=== PATIENT | female | born 1995 | race Caucasian/White ===

== ENCOUNTER 2025-06-04 09:31 | Outpatient (REF) | payer OTHER, MEDICAID, SELFPAY ==
[2025-06-04 13:05] LABS: MANUAL DIFF FLAG NO
[2025-06-04 13:18] LABS: Hematocrit 42.7 % (37.0-47.0); Hemoglobin 13.8 g/dl (12.0-16.0); Imm Gran Abs Auto 0.02 X10*3/uL (0.00-0.03); Imm Gran Pct Auto 0.3 % (0.0-0.4); Lymphocytes Absolute Auto 1.7 X10*3/uL (1.2-4.9); Mean Corpuscular HGB Conc 32.3 g/dl (31.0-35.0); Mean Corpuscular Hemoglobin 28.7 pg (27.0-33.0); Mean Corpuscular Volume 88.8 fL (80.0-98.0); NRBC Abs Auto 0.000 X10*3/uL (0.0-0.012); NRBC Pct Auto 0.0 /100WBC (0.0-0.2); Platelet Count 299 X10*3/uL (160-400); Red Blood Count 4.81 X10*6/uL (4.20-5.50); White Blood Count 6.1 X10*3/uL (4.8-10.8)
[2025-06-06 10:48] LABS: Class Alternaria alternata 0; Class Aspergillus fumigatus 0; Class Bermuda Grass 0; Class Birch 0; Class Cat Dander 0; Class Cladosporium herbarum 0; Class Cockroach 0; Class Common Ragweed 0; Class Cottonwood 0; Class Derm. pterony 0; Class Dermatophagoides farinae 0; Class Dog Dander 0; Class Elm 0; Class Maple Box Elder 0; Class Mountain Cedar 0; Class Mouse Urine Protein 0; Class Mugwort 0; Class Oak 0; Class Penicillium crysogenum 0; Class Rough Pigweed 0; Class Sheep Sorrel 0; Class Sycamore 0; Class Timothy Grass 0; Class Walnut Tree 0; Class White Ash 0; Class White Mulberry 0; D002 - IgE D farinae <0.10 kU/L; E001 - IgE Cat Dander <0.10 kU/L; E005 - IgE Dog Dander <0.10 kU/L; G006 - IgE Timothy Grass <0.10 kU/L; I006-IgE Cockroach, German <0.10 kU/L; M002 - IgE Cladosporium herbar <0.10 kU/L; M003 - IgE Aspergillus fumigat <0.10 kU/L; M006 - IgE Alternaria alternat <0.10 kU/L; T001 IgE Maple/Box Elder <0.10 kU/L; T006 - IgE Cedar, Mountain <0.10 kU/L; T007 - IgE Oak, White <0.10 kU/L; T008 IgE Elm, American <0.10 kU/L; T010 - IgE Walnut <0.10 kU/L; T011 - IgE Maple Leaf Sycamore <0.10 kU/L; T014 - IgE Cottonwood <0.10 kU/L; T015 - IgE Ash, White <0.10 kU/L; T070 - IgE White Mulberry <0.10 kU/L; W001 - IgE Ragweed, Short <0.10 kU/L; W006 - IgE Mugwort <0.10 kU/L; W014 IgE Pigweed, Common <0.10 kU/L; W018 IgE Sheep Sorrel <0.10 kU/L
== END 2025-06-04 09:32 | disposition home or self-care (01) ==
LOC: HO.WFDLDS 09:31
PROVIDERS: PCP Internal Medicine; Referring Provider Internal Medicine; Visit Provider Nurse Practitioner Family
DX: J45.909 Unspecified asthma, uncomplicated (principal); Z01.84 Encounter for antibody response examination; Z91.09 Other allergy status, other than to drugs and biological substances
CPT/HCPCS: 36415; 82785; 85025; 86003

== ENCOUNTER 2025-06-04 09:31 | Outpatient (AMB) | payer OTHER, MEDICAID, SELFPAY ==
--- OUTSIDE RECORDS SUMMARY | 2025-03-11 09:00 | XMS_ITS ---
Author Organization [facility] Address [address] [place], [place] [id number] Care Team Providers Care Basin Operator Name Role Phone RADHA MEDEL Primary Care Provider [phone] ALLERGIES No Known Allergies REASON FOR REFERRAL Reason 03/11/[address] Blake pulmonary for shortness of breath question asthma question methacholine challenge test send copy of my note all the labs x-rays PFTs to the him Diagnosis 1 Shortness of breath (R06.02) Referral Organization [facility] Referring Provider First Name RADHA Referring Provider Last Name GIANFRANCO Referring Provider Speciality Internal M edicine Referred Provider CHAY BLAKE Referred Provider Specialty Pulmonary Chinyere hogue Referral Priority Urgent REASON FOR VISIT PG/1mo f/u respiratory ongoing issue MEDICATIONS Medication SIG (Take, Route, Fr equency, Duration) Notes Start Date End Date Status Culturelle - as directed Orally Active FLUoxetine HCl 20 MG 2 capsule orally once a day Active clonazePAM 0.25 MG 1 tablet Orally Once a day prn prn Active Mounjaro 5 MG/0.5ML as directed Subcutan eous once a week E66.01 10/15/2024 Active SOCIAL HISTORY Tobacco Use: Social History Observation Description Date Details (start date - stop date) Never Smoker NA - NA Sex Assigned At : Social History Observation Description Sex Assigned At Unknown Smoking Question Answer Notes Are you a: never smoker Section Notes: pt never smoke VITAL SIGNS Blood pressure systolic 106 mm Hg 03/11/20 25 Blood pressure diastolic 74 mm Hg 025 Height 63.75 in 03/11/2025 Weight 160 lbs 03/11/2025 BMI 27.68 kg/m2 03/11/2025 Encounters Encounter Location Date Provider Diagnosis [facility] [address] [place] [address] 03/11/2025 RADHA MEDEL Disorder of lipoprotein metabolism, unspecified E78.9 ; Anxiety disorder, unspecified F41.9 ; Elevated alkaline phosphatase level R74.8 ; Major depressive disorder, single episode, unspecified F32.9 ; Frequent headaches R51.9 ; Shortness of breath R06.02 and Weight loss R63.4 ASSESSMENTS Encounter Date Diagnosis Assessment Notes Treatment Notes Treatment Clinical Notes Section Notes 03/11/2025 Disorder of lipoprotein metabolism, unspecified (ICD-10 - E78.9) Lipids at goal total less than 200 LDL less than 100 follow-up in 12 months 03/11/2025 Anxiety disorder, unspecified (ICD-10 - F41.9) 03/11/2025 Elevated alkaline phosphatase level (ICD-10 - R74.8) Stable. Symptoms recheck alk phos. Recheck serum protein electrophoresis etc. check smooth muscle antibody 03/11/2025 Major depressive disorder, single episode, unspecified (ICD-10 - F32.9) Stable doing well continue SSRI 03/11/2025 Frequent headaches (ICD-10 - R51.9) Neurologically intact MRI of the brain negative check labs 03/11/2025 Shortness of breath (ICD-10 - R06.02) Physical exam stable. With symptoms we will get a consultation with Dr. Blake. Chest x-ray without any active disease. PFTs seem normal. May need a methacholine challenge test. Will also set up a cardiac echo 03/11/2025 Weight loss (ICD-10 - R63.4) Patient stable doing well continue with present dose of GLP-1. Has lost a significant amount of weight and is overall doing much better. No side effects noted 03/11/2025 Other PLAN OF TREATMENT Treatment Notes Assessment Notes Disorder of lipoprotein meta bolism, unspecified Lipids at goal total less than 200 LDL l ess than 100 follow-up in 12 months Elevated alkaline phosphatase level Stab le. Symptoms recheck alk phos. Recheck serum protein electrophoresis etc. check smooth muscle antibody Major depressive disorder, s tia episode, unspecified Stable doing well continue SSRI Frequent headaches Neurologically intac t MRI of the brain negative check labs Shortness of breath Physical exam stable . With symptoms we will get a consultation with Dr. Blake. Chest x-ray without any active disease. PFTs seem normal. May need a methacholine challenge test. Will also set up a cardiac echo Weight loss Patient stable doing well continue with present dose of GLP-1. Has lost a significant amount of weight and is overall doing much better. No side effects noted Referrals Referral Date Details 03/11/[address] Blake pulmonary for shortness of breath question asthma question methacholine challenge test send copy of my note [facility] Appt Details Follow Up: Follow-up 6 month s labs pending, Reason: Provider Name:RADHA PHILLIPS, 11/19/2025 10:30:00 AM, [address] [place] [address], [phone], Progress Notes * Examination Category Sub-Category Detail Notes Category Not es General Examination HEENT: Conjunctiva pink anicteric mucous membranes moist oropharynx clear TMs clear sinus clear EACs clear fundi negative Neck: Supple carotids 2+ n o bruits lymphadenopathy no thyromegaly Heart: RRR, no murmurs, cli cks or rubs Lungs: clear to auscultatio n Abdomen: soft, non tender/non distended, no rebound tenderness, no guarding or rigidity, no masses palpated, no hepatosplenomegaly, normal active bowel sounds Extremities: no clubbing , cyanos is, or edema, pulses 2 plus bilaterally General Appearance Pleasant well-develo ped well-nourished white female appearing stated age no apparent distress Skin: normal, no rash, arden ign appearing moles Neuro alert and oriented x 3, CN 2-12 intact, motor 5/5 bilaterally proximally and distally in all 4 extremities, no focal abnormality History and Physical Notes * HPI (History of Present Illness) Category Sub-Category Detail Notes Category Not es General Follow-up heada ches. See review of systems below Consultation Request Notes Referral Date Referring Provider Referred Provider Not es 03/11/2025 RADHA MEDEL MIGUEL [address] Blake pulmonary for shortness of breath question asthma question methacholine challenge test send copy of my note all the labs x-rays PFTs to the him
--- OUTSIDE RECORDS SUMMARY | 2025-03-11 09:35 | XMS_ITS ---
Author Organization [facility] Address [address] [place], [place] [id number] Care Team Providers Care Meat Team Member Name Role Phone RADHA MEDEL Primary Care Provider REASON FOR VISIT (PHONE) Encounters Encounter Location Date Provider Diagnosis [facility] [address] [place] [address] 03/11/2025 RADHA MEDEL PLAN OF TREATMENT Next Appt Details Provider Name:RADHA PHILLIPS, 11/19/2025 10:30:00 AM, [address] [place], [address],
--- OUTSIDE RECORDS SUMMARY | 2025-04-09 06:22 | XMS_ITS ---
Author Organization [facility] Address [address] [place], [place] [id number] Care Team Providers Care Plate Fitter Name Role Phone RADHA MEDEL Primary Care Provider REASON FOR VISIT fax chest x-ray PFT test Encounters Encounter Location Date Provider Diagnosis [address] [address] 04/09/2025 RADHA MEDEL PLAN OF TREATMENT Next Appt Details Provider Name:RADHA PHILLIPS, 11/19/2025 10:30:00 AM, [address] [place], [address],
--- OUTSIDE RECORDS SUMMARY | 2025-04-25 09:20 | XMS_ITS ---
Author Organization [facility] Address [address] [place], [place] [id number] Care Team Providers Care Chorus Master Name Role Phone RADHA MEDEL Primary Care Provider REASON FOR VISIT re fax cxr/PFT Encounters Encounter Location Date Provider Diagnosis [address] [address] 04/25/2025 RADHA MEDEL PLAN OF TREATMENT Next Appt Details Provider Name:RADHA PHILLIPS, 11/19/2025 10:30:00 AM, [address] [place], [address],
--- OUTSIDE RECORDS SUMMARY | 2025-05-01 06:30 | XMS_ITS ---
Author Organization [facility] Address [address] [place], [place] [id number] Care Team Providers Care Sole Splitter Name Role Phone GIANFRANCO RADHA Primary Care Provider [phone] ALLERGIES No Known Allergies REASON FOR VISIT 6mo F/U MEDICATIONS Medication SIG (Take, Route, Fr equency, Duration) Notes Start Date End Date Status Zepbound 5 MG/0.5ML 0.5 mL Subcutaneous for 30 day(s) Active clonazePAM 0.25 MG 1 tablet Orally Once a day prn prn Active Culturelle - as directed Orally Active FLUoxetine HCl 20 MG 2 capsule orally once a day Active SOCIAL HISTORY Tobacco Use: Social History Observation Description Date Details (start date - stop date) Never Smoker NA - NA Sex Assigned At : Social History Observation Description Sex Assigned At Unknown Smoking Question Answer Notes Are you a: never smoker Section Notes: pt never smoke VITAL SIGNS Blood pressure systolic 104 mm Hg 05/01/20 25 Blood pressure diastolic 70 mm Hg 025 Height 63.75 in 05/01/2025 Weight 152 lbs 05/01/2025 BMI 26.29 kg/m2 05/01/2025 Encounters Encounter Location Date Provider Diagnosis [facility] [address] [place] [address] 05/01/2025 RADHA MEDEL Disorder of lipoprotein metabolism, unspecified E78.9 ; Anxiety disorder, unspecified F41.9 ; Elevated alkaline phosphatase level R74.8 ; Major depressive disorder, single episode, unspecified F32.9 ; Unintended weight gain R63.5 and Frequent headaches R51.9 ASSESSMENTS Encounter Date Diagnosis Assessment Notes Treatment Notes Treatment Clinical Notes Section Notes 05/01/2025 Disorder of lipoprotein metabolism, unspecified (ICD-10 - E78.9) Total cholesterol 160 LDL under 100 therefore recheck in 1 year. 05/01/2025 Anxiety disorder, unspecified (ICD-10 - F41.9) Stable doing well on present dose of SSRI continue 05/01/2025 Elevated alkaline phosphatase level (ICD-10 - R74.8) Recheck alkaline phosphatase check serum immunofixation 05/01/2025 Major depressive disorder, single episode, unspecified (ICD-10 - F32.9) 05/01/2025 Unintended weight gain (ICD-10 - R63.5) Patient doing very well with no side effects from the medication and has lost a considerable amount of weight body mass index has now dropped down to 27 with a 50 pound weight loss. Told patient I would probably decrease the dosage when she gets down to around 140 05/01/2025 Frequent headaches (ICD-10 - R51.9) Stable doing well PLAN OF TREATMENT Treatment Notes Assessment Notes Disorder of lipoprotein meta bolism, unspecified Total cholesterol 160 LDL under 100 therefore recheck in 1 year. Anxiety disorder, unspecified Stable doi ng well on present dose of SSRI continue Elevated alkaline phosphatase level Rech adrian alkaline phosphatase check serum immunofixation Unintended weight gain Patient doing ryan y well with no side effects from the medication and has lost a considerable amount of weight body mass index has now dropped down to 27 with a 50 pound weight loss. Told patient I would probably decrease the dosage when she gets down to around 140 Frequent headaches Stable doing well Next Appt Details Follow Up: Patient due for p hysical exam in 1 year labs pending, Reason: Provider Name:RADHA PHILLIPS, 11/19/2025 10:30:00 AM, [address] [place], [address], Progress Notes * Examination Category Sub-Category Detail Notes Category Not es General Examination HEENT: Conjunctiva pink anicteric mucous membranes moist oropharynx clear times clear sinuses clear EACs clear fundi negative Neck: Supple carotids 2+ n o bruits no lymphadenopathy no thyromegaly Heart: RRR, no murmurs, cli cks or rubs Lungs: clear to auscultatio n Abdomen: soft, non tender/non distended, no rebound tenderness, no guarding or rigidity, no masses palpated, no hepatosplenomegaly, normal active bowel sounds Extremities: no clubbing , cyanos is, or edema, pulses 2 plus bilaterally General Appearance Pleasant well-develo ped well-nourished white female appears stated age no apparent distress Skin: normal, no rash, arden ign appearing moles History and Physical Notes * HPI (History of Present Illness) Category Sub-Category Detail Notes Category Not es General Follow-up regar ding weight loss progress. See review of systems below
--- OUTSIDE RECORDS SUMMARY | 2025-05-21 06:57 | XMS_ITS ---
Author Organization [facility] Address [address] [place], [place] [phone] Care Team Providers Care Supply Chain Manager Name Role Phone RADHA MEDEL Primary Care Provider REASON FOR VISIT 2 right arm pain Encounters Encounter Location Date Provider Diagnosis [facility] [address] [place] [address] 05/21/2025 RADHA MEDEL PLAN OF TREATMENT Next Appt Details Provider Name:RADHA PHILLIPS, 11/19/2025 10:30:00 AM, [address] [place], [address],
--- OUTSIDE RECORDS SUMMARY | 2025-05-21 07:27 | XMS_ITS ---
Author Organization [facility] Address [address] [place], [place] [phone] Care Team Providers Care Cosmetics Supervisor Name Role Phone RADHA MEDEL Primary Care Provider [phone] REASON FOR VISIT muscle aches Encounters Encounter Location Date Provider Diagnosis [facility] [address] [place] [address] 05/21/2025 RADHA MEDEL PLAN OF TREATMENT Next Appt Details Provider Name:RADHA PHILLIPS, 11/19/2025 10:30:00 AM, [address] [place], [address],
--- OUTSIDE RECORDS SUMMARY | 2025-05-22 10:00 | XMS_ITS ---
Author Organization [facility] Address [address] [place], [place] [phone] Care Team Providers Care Forestry Scientist Name Role Phone RADHA MEDEL Primary Care Provider ALLERGIES No Known Allergies RESULTS Component Value Reference Range Notes XR Shoulder Right minimum 2 views Reviewed date:05/24/2025 04:23:33 PM Interpretation: Performing Lab: Notes/Report: XR Humerus Right 2 views Reviewed date:05/24/2025 04:22:42 PM Interpretation: Performing Lab: Notes/Report: REASON FOR VISIT 42/arm px, DECLINED FLU VACCINE MEDICATIONS Medication SIG (Take, Route, Fr equency, Duration) Notes Start Date End Date Status Zepbound 5 MG/0.5ML 0.5 mL Subcutaneous for 30 day(s) Active clonazePAM 0.25 MG 1 tablet Orally Once a day prn prn Active FLUoxetine HCl 20 MG 2 capsule orally once a day Active Culturelle - as directed Orally Active SOCIAL HISTORY Tobacco Use: Social History Observation Description Date Details (start date - stop date) Never Smoker NA - NA Sex Assigned At : Social History Observation Description Sex Assigned At Unknown Smoking Question Answer Notes Are you a: never smoker Section Notes: pt never smoke VITAL SIGNS Blood pressure systolic 99 mm Hg 05/22/20 25 Blood pressure diastolic 67 mm Hg 025 Height 63.75 in 05/22/2025 Weight 150 lbs 05/22/2025 BMI 25.95 kg/m2 05/22/2025 Encounters Encounter Location Date Provider Diagnosis [facility] [address] [place] [address] 05/22/2025 RADHA MEDEL Pain of upper extremity, unspecified laterality M79.603 ; Disorder of lipoprotein metabolism, unspecified E78.9 ; Anxiety disorder, unspecified F41.9 ; Elevated alkaline phosphatase level R74.8 and Major depressive disorder, single episode, unspecified F32.9 ASSESSMENTS Encounter Date Diagnosis Assessment Notes Treatment Notes Treatment Clinical Notes Section Notes 05/22/2025 Pain of upper extremity, unspecified laterality (ICD-10 - M79.603) Etiology of the pain unclear. Seems to be more like a soft tissue muscular type of a strain. Recommend rest heat NSAIDs for 3 to 7 days. Check an x-ray of the humerus and shoulder. Check CBC and a CK and a sed rate. 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 Recommend continue diet exercise and weight loss. Recheck in 6 months 05/22/2025 Anxiety disorder, unspecified (ICD-10 - F41.9) Stable continue as needed clonazepam and fluoxetine 05/22/2025 Elevated alkaline phosphatase level (ICD-10 - R74.8) Recheck alk phos. Check antimitochondrial antibody follow-up IgM level serum protein electrophoresis negative for an M spike. Polyclonal increase in immunofixation will monitor 05/22/2025 Major depressive disorder, single episode, unspecified (ICD-10 - F32.9) Stable doing well 05/22/2025 Other Patient tolerat ing the GLP-1 agonist therapy well. He is also sleeping moderately. No side effects PLAN OF TREATMENT Treatment Notes Assessment Notes Pain of upper extremity, uns pecified laterality Etiology of the pain unclear. Seems to b e more like a soft tissue muscular type of a strain. Recommend rest heat NSAIDs for 3 to 7 days. Check an x-ray of the humerus and shoulder. Check CBC and a CK and a sed rate. If no improvement may need physical therapy and possibly ultrasound of the soft tissues Disorder of lipoprotein meta bolism, unspecified Total cholesterol okay at 194 LDL is 114 goal being less than 100. Recommend continue diet exercise and weight loss. Recheck in 6 months Anxiety disorder, unspecified Stable con tinue as needed clonazepam and fluoxetine Elevated alkaline phosphatase level Rech adrian alk phos. Check antimitochondrial antibody follow-up IgM level serum protein electrophoresis negative for an M spike. Polyclonal increase in immunofixation will monitor Major depressive disorder, s tia episode, unspecified Stable doing well Other Patient tolerating t he GLP-1 agonist therapy well. He is also sleeping moderately. No side effects Future Test Test Name Order Date Lyme Disease Serology w/[id number] Next Appt Details Follow Up: Keep scheduled OB follow-up labs pending, Reason: Provider Name:RADHA Ryan PHILLIPS, 11/19/2025 10:30:00 AM, [address] [place], [address], Progress Notes * Examination Category Sub-Category Detail Notes Category Not es General Examination HEENT: Conjunctiva pink anicteric his membranes moist oropharynx clear TMs clear sinus clear EACs clear fundi negative Neck: Supple carotids 2+ n o bruits lymphadenopathy or thyromegaly Heart: Regular rate and rhy thm no murmurs rubs or gallops Lungs: clear to auscultatio n Abdomen: soft, non tender/non distended, no rebound tenderness, no guarding or rigidity, no masses palpated, no hepatosplenomegaly, normal active bowel sounds Extremities: no edema, pulses 2 p jazlyn bilaterally General Appearance Pleasant well-develo ped well-nourished white female appearing stated age no apparent distress Skin: Clear without atypia or rashes concerning lesions Neuro alert and oriented x 3, CN 2-12 intact, motor 5/5 bilaterally proximally and distally in all 4 extremities, no focal abnormality Musculoskeletal Right shoulder full range of motion in all directions including circumduction flexion and extension abduction abduction etc. elbow full range of motion. No crepitus no effusions. Upper arm soft tissues no masses no lumps nontender to palpation. Skin intact with no evidence of any different rash History and Physical Notes * HPI (History of Present Illness) Category Sub-Category Detail Notes Category Not es General Arm pain see re view of systems below
--- OUTSIDE RECORDS SUMMARY | 2025-05-23 03:15 | XMS_ITS ---
Author Organization [facility] Address [address] [place], [place] [id number] Care Team Providers Care Intervention Teacher Name Role Phone RADHA MEDEL Primary Care Provider Encounters Encounter Location Date Provider Diagnosis [address] [address] 05/23/2025 RADHA MEDEL Elevated total protein R77.8 ASSESSMENTS Encounter Date Diagnosis Assessment Notes Treatment Notes Treatment Clinical Notes Section Notes 05/23/2025 Elevated total protein (ICD-10 - R77.8) PLAN OF TREATMENT Future Test Test Name Order Date Immunofixation, [id number] 05/23/2025 Protein Elec + Interp, Serum-[id number] 05/02 Next Appt Details Provider Name:RADHA PHILLIPS, 11/19/2025 10:30:00 AM, [address] [place], [address],
--- OUTSIDE RECORDS SUMMARY | 2025-05-24 11:23 | XMS_ITS ---
Author Organization [facility] Address [address] [place], [place] [id number] Care Team Providers Care Supervisor Open Hearth Stockyard Name Role Phone RADHA MEDEL Primary Care Provider [phone] REASON FOR VISIT XRAY RESULTS Encounters Encounter Location Date Provider Diagnosis [facility] [address] [place] [address] 05/24/2025 RADHA MEDEL PLAN OF TREATMENT Next Appt Details Provider Name:RADHA PHILLIPS, 11/19/2025 10:30:00 AM, [address] [place], [address],
--- OUTSIDE RECORDS SUMMARY | 2025-05-29 22:59 | XMS_ITS | Continuity of Care Document ---
Author Organization [facility] [place] [address] [facility] [address] [place] [address]- Support Name Relationship Address Phone RIANA MATHUR Personal Relationship Unknown Unav ailable BUDREAU, RIANA Personal Relationship Unknown Unav ailable BUDREAU, RIANA Personal Relationship Unknown Unav ailable DORSI, ARIE Other Unknown Unavailable BUDREAU, RIANA Personal Relationship Unknown Unav ailable BUDREAU, RIANA Personal Relationship Unknown Unav ailable BUDREAU, RIANA Personal Relationship Unknown Unav ailable BUDREAU, RIANA Personal Relationship Unknown Unav ailable BUDREAU, RIANA Personal Relationship Unknown Unav ailable BUDREAU, RIANA Personal Relationship Unknown Unav ailable BUDREAU, RIANA Personal Relationship Unknown Unav ailable BUDREAU, RIAAN Personal Relationship Unknown Unav ailable BUDREAU, RIANA Personal Relationship Unknown Unav ailable BUDREAU, RIANA Personal Relationship Unknown Unav ailable BUDREAU, RIANA Personal Relationship Unknown Unav ailable BUDREAU, RIANA Personal Relationship Unknown Unav ailable BUDREAU, RIANA Personal Relationship Unknown Unav ailable BUDREAU, RIANA Personal Relationship Unknown Unav ailable BUDREAU, RIANA Personal Relationship Unknown Unav ailable BUDREAU, RIANA Personal Relationship Unknown Unav ailable LISSA CALLOWAY Personal Relationship Unknown Cecy vailable BUDREAU, RIANA Personal Relationship Unknown Unav ailable BUDREAU, RIANA Personal Relationship Unknown Unav ailable BUDREAU, RIANA Personal Relationship Unknown Unav ailable BUDREAU, RIANA Personal Relationship Unknown Unav ailable BUDREAU, RIANA Personal Relationship Unknown Unav ailable BUDREAU, AXEL mother Unknown Unavailable BUDREMALVIN, RIANA Personal Relationship Unknown Unav ailable BUDREAU, RIANA Personal Relationship Unknown Unav ailable BUDREAU, RIANA Personal Relationship Unknown Unav ailable BUDREAU, RIANA Personal Relationship Unknown Unav ailable Care Team Providers Care Wellness Coach Name Role Phone Markus Macedo MD Primary Care Physician Encounter 05/22/25 - 05/29/25 [facility] [address] [facility], [address] Attending Physician: Markus Macedo MD Admitting Physician: Markus Macedo MD Referring Physician: Markus Macedo MD Encounter Type: OutPatient One Time Allergies, Adverse Reactions, Alerts No Known Allergies Immunizations Given and Recorded Vaccine Date Status Refusal Reason influenza virus vaccine, inactivated 1 06/02/16 Gi glenny influenza virus vaccine, inactivated 2 04/25/15 Gi glenny influenza virus vaccine, inactivated 06/21/05 Give n Hepatitis A Pediatric Vaccine 3 01/26/13 Given Hepatitis A Pediatric Vaccine 4 01/17/12 Given Meningococcal Conjugate Vaccine 5 01/11/11 Given Meningococcal Conjugate Vaccine 12/18/07 Given tetanus/diphtheria/pertussis, acel(Tdap) 6 01/11/11 Given influ virus vac, H1N1, inactive(oldterm) 7 06/10/09 Given Varicella Virus Vaccine 12/18/07 Given Varicella Virus Vaccine 01/27/99 Given Tetanus Toxoid Vaccine (oldterm) 01/07/05 Given Poliovirus Vaccine, Inactivated 12/24/99 Given Poliovirus Vaccine, Inactivated 06/11/95 Given Poliovirus Vaccine, Inactivated 04/13/95 Given Poliovirus Vaccine, Inactivated 02/09/95 Given Diphth/Pertussis,Acel/Tetanus (oldterm) 12/24/99 G iven Diphth/Pertussis,Acel/Tetanus (oldterm) 03/12/96 G iven Diphth/Pertussis,Acel/Tetanus (oldterm) 06/11/95 G iven Diphth/Pertussis,Acel/Tetanus (oldterm) 04/13/95 G iven Diphth/Pertussis,Acel/Tetanus (oldterm) 02/09/95 G iven Measles/Mumps/Rubella Virus Vaccine 12/15/98 Given Measles/Mumps/Rubella Virus Vaccine 12/21/95 Given Haemophilus B Conj Vaccine (oldterm) 03/12/96 Give n Haemophilus B Conj Vaccine (oldterm) 06/11/95 Give n Haemophilus B Conj Vaccine (oldterm) 04/13/95 Give n Haemophilus B Conj Vaccine (oldterm) 02/09/95 Give n Hepatitis B Vaccine (old term) 09/15/95 Given Hepatitis B Vaccine (old term) 02/09/95 Given Hepatitis B Vaccine (old term) 94 Given 1Result Comment: [06/02/2016] Oneyda De La Rosa NP 2Result Comment: [04/25/2015] Oneyda De La Rosa 3Result Comment: [01/26/2013] ordered by Martha Zhong NP 4Admin Note: vis given 2011 5Admin Note: VIS 08/28/07 6Admin Note: VIS 12/29/2005 7Admin Note: H1N1 SHOT Medications fluoxetine 20 mg oral capsule 1 capsule = 20 mg, By Mouth, Daily, # 30 capsule, 0 Refills, Maintenance, 11/25/11 1:15:29 PM EDT, Capsule, [facility] Start Date: 11/25/11 Status: Ordered Medication Dispense Status: Completed Quantity: 30.0 Unit: capsule Total Allowed Fills: 1 Fills Dispensed: 0 fluoxetine 40 mg oral capsule 1 capsule = 40 mg, By Mouth, Daily, # 30 capsule, 1 Refills, Maintenance, 11/25/11 1:18:07 PM EDT, Capsule, [facility] Start Date: 11/25/11 Status: Ordered Medication Dispense Status: Completed Quantity: 30.0 Unit: capsule Total Allowed Fills: 2 Fills Dispensed: 0 FLUoxetine 60 mg oral tablet 1 tablet = 60 mg, By Mouth, Daily in AM, # 90 tablet, 0 Refills, Maintenance, 01/27/15 3:31:41 PM EDT, Tablet, [facility] Start Date: 01/27/15 Stop Date: 04/27/15 Status: Ordered Medication Dispense Status: Completed Quantity: 90.0 Unit: tablet Total Allowed Fills: 1 Fills Dispensed: 0 Problem List Condition Confirmation Course Effective Dates Status Health St [facility] Informant ANXIETY STATES Confirmed Active Tourette disorder Confirmed Active Results Radiology Reports * Exam Date Time Procedure Performing Provider Status 05/22/25 4:30 PM Humerus Min 2 Views Right Auth (Verified) Notes: (Humerus Min 2 Views Right) Reason For Exam: M79.603, Pain of upper extremity RESULT: Humerus Min 2 Views Right Humerus Min 2 Views Right, 2 views Reason: M79.603, Pain of upper extremity COMPARISON: Right shoulder radiographs of the same date. FINDINGS: No fractures or bone lesions. The visualized portions of the joints are normal. Normal soft tissues. IMPRESSION: Normal. WSN: [id number] Ordering Physician: Markus Macedo Dictated By: Kwesi Izaguirre MD Dictated Date/Time: 05/23/25 9:37 am Reviewed By: Kwesi Izaguirre MD Signed By: Kwesi Izaguirre MD Signed Date/Time: 05/23/25 9:37 am Transcribed By: MORGAN Transcribed Date/Time: 05/23/25 9:36 am * Exam Date Time Procedure Performing Provider Status 05/22/25 4:30 PM Shoulder Min 2 Views Right Auth (Verified) Notes: (Shoulder Min 2 Views Right) Reason For Exam: M79.603, Pain of upper extremity RESULT: Shoulder Min 2 Views Right Right shoulder, 2 views Reason: M79.603, Pain of upper extremity COMPARISON: None. FINDINGS: No fracture or dislocation. No arthritic change of the glenohumeral joint. Normal AC joint and portions of the clavicle included on the exam. No calcification of the rotator cuff. IMPRESSION: Normal. WSN: [id number] Ordering Physician: Markus Macedo Dictated By: Kwesi Izaguirre MD Dictated Date/Time: 05/23/25 9:36 am Reviewed By: Kwesi Izaguirre MD Signed By: Kwesi Izaguirre MD Signed Date/Time: 05/23/25 9:36 am Transcribed By: MORGAN Transcribed Date/Time: 05/23/25 9:36 am Social History Social History Type Response Sex Sex Representation Female (finding) Patient Care team information Care Team Personnel Name: Kristina Graves RN Position: [facility] SN RN Member Role: Primary Care Nurse Name: Rudy De La Fuente MD Position: [facility] Physician - Pediatrics Member Role: Lifetime Consulting Physician Address: [address] [place] [address] [place] [address]- Telecom: Name: Markus Macedo MD Position: [facility] Outreach Member Role: PCP Address: [address] [place] [address]- Telecom: Care Team Related Persons Name: AXEL MATHUR Name: ARIE CHRISTINA Insurance Providers Guarantor name: [facility] Information #: 1 Payer: [facility] NON HMO PLANS Payer Identifier: JULIAN Member Number: [id number] Group Number: [id number] Subscriber Identifier: [id number] Relationship to Subscriber: self Coverage Type: Managed Care (Private) Coverage Verification Date: NA Telecom: NA Address: [facility] Information #: 2 Payer: [facility] [employer] Payer Identifier: JULIAN Member Number: [id number] Group Number: Subscriber Identifier: [id number] Relationship to Subscriber: self Coverage Type: MEDICAID Coverage Verification Date: NA Telecom: NA Address:
--- NOTE | 2025-06-04 09:32 | MHC.OFFVIS ---
Vital Signs 06/04/25 09:34 Height 5 ft 3.75 in Weight 149 lb 8 oz BMI 25.9 BP 90/58 L Blood Pressure Location Rt brachial Position Sitting Pulse 74 Pulse Source Pulse Oximeter Pulse Oximetry (%) 100 Oxygen Delivery Method Room Air Intake Visit Reasons: Shortness of breath Allergies No Known Allergies (No Known Allergies*) Allergy (Unverified 06/04/25 09:37) HPI HPI Shortness of breath: Details: Chalino is a pleasant 29-year-old female, never smoker, with underlying Asperger syndrome, Anxiety and Depression. She was referred by PCP for pulmonary evaluation. She reports respiratory symptoms including inermittent shortness of breath and dry cough, which became more persistent after having laryngitis in the Spring. The patient reports a history of losing her voice for a week, accompanied by a persistent cough and shortness of breath, which began in the spring to summer period. She describes the cough as dry and notes difficulty in taking a full breath, which she associates with the coughing episodes. A PFT was conducted at [facility], patient recalls being informed of possible mild asthma during the test, though no formal diagnosis was made at that time. PFT reviewed below. The patient has a history of using an Advair inhaler as needed as a child, though she does not recall the duration of use and has never been diagnosed with asthma. She denies any significant history of smoking or exposure to smoke, though there is a family history of smoking. The patient underwent a chest x-ray in December, which showed hyperinflated lungs, a finding that can be associated with asthma. She has no history of bronchitis or pneumonia, and reports a general improvement in health with recent lifestyle changes, including healthier eating habits. She endorses seasonal allergies, no recent allergy testing. 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 [facility] Social History (Updated 06/04/25 @ 09:37 by Dawn Alvarado CMA) Patient Tobacco Use Status: Never used Tobacco Review of Systems Const Denies chills, Denies excessive sweating, Denies fever(s), Denies headache(s) and Denies night sweats Eyes Denies dry eyes, Denies irritation and Denies itchy eyes ENT Reports Normal hearing present, Denies headache(s), Denies nasal congestion, Denies nasal discharge, Denies post nasal drip and Denies sore throat Card Denies chest pain, Denies chest pain at rest, Denies chest pain with activity, Denies claudication, Denies leg edema, Denies orthopnea and Denies paroxysmal nocturnal dyspnea Resp Denies chest congestion, Denies excessive phlegm production, Denies pain on inspiration, Denies pain with cough, Denies stridor and Denies wheezing Musc Denies myalgias Neuro Reports Normal hearing present and Denies headache(s) Endo Denies excessive sweating Shabbir/Lymph Denies lymphadenopathy Aller/Immun Denies itchy eyes, Denies seasonal rhinorrhea and Denies wheezing Physical Exam Vital Signs: Last Vital Signs Pulse 74 06/04/25 09:34 BP 90/58 L 06/04/25 09:34 Pulse Ox 100 06/04/25 09:34 Oxygen Delivery Method Room Air 06/04/25 09:34 BMI result Body Mass Index 25.9 Const General: cooperative, healthy appearing, comfortable, no acute distress, well developed and alert Orientation/consciousness: patient oriented x3 Limitations: no limitations HEENT Head: Yes normal to inspection, Yes normocephalic and Yes atraumatic Ears: hearing grossly normal bilaterally and external ears normal Eyes General: appearance normal, both eyes and all related structures Eyelids: Yes eyelids normal Sclerae: sclerae normal EOM: EOMs intact bilaterally Neck Neck: Yes normal visual inspection and Yes no lymphadenopathy Lymphatic: no lymphadenopathy noted Chest Chest palpation & inspection: normal inspection of the chest Resp Effort & Inspection: normal respiratory effort, able to speak in complete sentences, no audible wheezes, no cough, no stridor, not tachypneic, no tripod positioning and no use of accessory muscles Auscultation: clear to auscultation bilaterally Cardio Jugular venous distension: no JVD Rate: regular rate Rhythm: regular rhythm Skin Other: warm, dry General skin exam: no rashes or lesions noted Neuro General: patient oriented x3 Cranial nerves: Yes Normal hearing present Cognition (Neuro): normal cognition Gait exam (Neuro): Normal gait present Extrem General: Yes normal to inspection, Yes capillary refill normal, Yes no clubbing, cyanosis or edema and Yes no pedal edema Psych Appearance: grossly normal and well kempt Speech and movement: Normal speech and movement present and Clear speech present Affect: normal affect Attitude: cooperative Thought process: Normal thought process present Thought content: Normal thought content present Insight: Good insight present (Psych) Judgement: Good judgement present (Psych) Results Reviewed Results Reviewed: RESULT: Chest 2 Views Frontal and Lat Chest 2 Views Frontal and Lat INDICATION: R05.9 Cough COMPARISON: CT 01/24/2006. FINDINGS: The lungs remain mildly to moderately hyperexpanded and clear. Cardiomediastinal silhouette is normal. Mild scoliotic spinal curvature. IMPRESSION: COPD changes. WSN: [id number] Ordering Physician: Sven Segura Reason For Exam R05.9 Cough Signature Line Dictated By: Greg Wynne MD Dictated Date/Time: 01/16/25 3:00 pm Reviewed By: Greg Wynne MD Signed By: Greg Wynne MD Signed Date/Time: 01/16/25 3:00 pm Transcribed By: MORGAN Assessment & Plan Assessment & Plan (1) Asthma: Code(s): J45.909 - Unspecified asthma, uncomplicated Category: Medical (2) Environmental allergies: Code(s): Z91.09 - Other allergy status, other than to drugs and biological substances Category: Medical Plan Reviewed PFT results which revealed no obstructive or restrictive defect, 10% improvement postbronchodilation, elevated lung volumes and DLCO, combined with CXR demonstrating hyperinflation, both suggestive of asthma. Discussed trialing albuterol MDI PRN which she is agreeable and if beneficial will consider ICS. Also recommended allergy testing to identify any environmental triggers that may be contributing to her symptoms. All questions were answered and patient is in agreement of plan. Will follow up in 8-10 weeks or sooner if needed. Orders: Orders Immunoglobulin E Today Z91.09 - Other allergy status, other than to drugs and biological substances Complete Blood Count Auto Diff Today Z91.09 - Other allergy status, other than to drugs and biological substances Resp Allergy Profile Region I Today Z91.09 - Other allergy status, other than to drugs and biological substances Medications: New albuterol sulfate 90 mcg/actuation 2 puffs inhalation Q4-6H PRN 1 ea 2RF shortness of breath or wheezing Coding Level of Care Code New Pt Level 4 (77388) Diagnoses Asthma J45.909 Environmental allergies Z91.09
[2025-06-04 09:34] VITALS: BP 90/58; PULSE 74; O2SAT 100; BMI 25.9
--- OUTSIDE RECORDS SUMMARY | 2025-06-04 10:40 | XMS_ITS ---
Author Name [facility] Organization Unknown Encounters Encounter Type Encounter Reason Primary Diagnosis Location Date Ambulatory [facility]. ([facility]) 08/16/2024
--- OUTSIDE RECORDS SUMMARY | 2025-06-04 10:40 | XMS_ITS | Patient Health Record ---
Author Organization [facility] Address [address] [place] [address] Care Team Providers Care Ditch Worker Name Role Phone Markus Macedo MD Primary Care Provider Unavail able Olga Garibay Unavailable [phone] Allergies No Known Allergies Results Component Value Reference Range Notes Urinalysis Reviewed date:10/11/2024 04:32:43 PM Interpretation: Performing Lab: Notes/Report: NITRITE Neg PH 6.0 PROTEIN Neg S.G 1.000 WBC Trace GLUCOSE Neg KETONES Neg UROBILINOGEN Neg BILIRUBIN Neg BLOOD Small Urinalysis, Complete-[id number] Reviewed date:10/14/2024 05:26:12 PM Interpretation: Performing Lab:[facility], [employer] [facility], Phone - [phone], Director - Myke Notes/Report: Specific [place] <=1.005 1.005-1.030 pH 6.5 5.0-7.5 Urine-Color Yellow Yellow Appearance Clear Clear WBC Esterase Negative Negative Protein Negative Negative/Trace Glucose Negative Negative Ketones Negative Negative Occult Blood Negative Negative Bilirubin Negative Negative Urobilinogen,Semi-Qn 0.2 0.2-1.0 mg/dL Nitrite, Urine Negative Negative Microscopic Examination Micr oscopic follows if indicated. Microscopic Examination See below: Micr oscopic was indicated and was performed. WBC None seen 0 - 5 /hpf RBC None seen 0 - 2 /hpf Epithelial Cells (non renal) None seen 0 - 10 /hpf Casts None seen None seen /lpf Bacteria None seen None seen/Few Urine Culture, Routine-[id number] Reviewed date:10/14/2024 05:25:54 PM Interpretation: Performing Lab:[facility], [employer] [facility], Phone - [phone], Director - Myke Notes/Report: Urine Culture, Routine Final report Result 1 Mixed urogenital jayy 10,000-25,000 colony forming units per mL PDF Report Reviewed date:10/14/2024 05:25:39 PM Interpretation: Performing Lab:[facility], [address], Phone - [phone], Director - Myke Notes/Report: Reason For Referral No Information Medications Medication SIG (Take, Route, Fr equency, Duration) Notes Start Date End Date Status PROzac 40 MG 1 capsule Orally Onc e a day 40mg and 20mg Active clonazePAM 0.5 MG 1 tablet Orally as needed PRN Active Vitamin C 500 MG as directed Orally Active Culturelle Probiotics Active Social History Tobacco Use: Social History Observation Description Date Details (start date - stop date) Never Smoker NA - NA Sexual History Question Answer Notes Had sex in the past 12 months (vaginal, oral, or anal)? No AUDIT-C (Standard) Question Answer Notes Did you have a drink contain ing alcohol in the past year? Yes How often did you have a dri nk containing alcohol in the past year? 2 to 4 times a month (2 points) How many drinks did you have on a typical day when you were drinking in the past year? 1 or 2 drinks (0 point) How often did you have six o r more drinks on one occasion in the past year? Never (0 point) Points 2 Interpretation Negative Tobacco Control (Standard) Question Answer Notes Tobacco use: Nonsmoker Problems Problem Type SNOMED Code ICD Code Onset Dates Problem Status W/U Status Risk Notes Problem Recurrent depression (299722552) Other recurrent depressive disorders (F33.8) Active confirmed Problem Anxiety disorder (064015707) Anxiety disorder, unspecified (F41.9) Active confirmed Problem Asperger's syndrome (87830183) Asperger's syndrome (F84.5) Active confirmed Problem Obsessive-compu lsive disorder (652510813) Obsessive-compul sive disorder, unspecified (F42.9) Active confirmed Vital Signs Height 64 in 10/11/2024 Weight 198 lbs 10/11/2024 BMI 33.98 kg/m2 10/11/2024 Encounters Encounter Location Date Provider Diagnosis [address] [address] 10/11/2024 Olga Garibay Frequency of micturition R35.0 and Other specified noninflammatory disorders of vagina N89.[address] [place] [address] 10/11/2024 Olga Garibay Assessments Encounter Date Diagnosis (ICD Code) Assessment Notes Treatment Notes Treatment Clinical Notes Section Notes 10/11/2024 Frequency of micturition (ICD-10 - R35.0) DISCUSSED OFFIC UA RESULTS. OFFICIAL UA AND URINE C/S WERE ORDERED. WILL CALL HER WITH RESULTS AND IF UTI IS NOTED, WILL PRESCRIBE AN APPROPRIATE ANTIBIOTIC. 10/11/2024 Other specified noninflammatory disorders of vagina (ICD-10 - N89.8) DISCUSSED NORMAL VAGINAL DISCHARGE DURING AND AFTER OVULATION. NO INFLAMMATORY CHANGES WERE SEEN PAT WAS REASSURED. IF SHE HAS DISCHARGE CONSTANTLY OR IF THIS WORSENS OR IS ACCOMPANIED BY BURNING OR ITCHING, COME BACK IN. Plan Of Treatment Next Appt Details Provider Name:Olga castro, 06/07/2025 11:00:00 AM, [address] [place] [address], [address], [place], [address], Insurance Providers Payer Name Payer Address Payer Phone Subscriber Number Group Number Insured Name Patient Relationship to Insured Coverage Start Date Coverage End Date [employer] [facility] [id number] [place] [address] [id number] JEAN MATHUR Self - patient is the insured Medical (General) History Medical History History ICD Code Other recurrent depressive disorders F33 .8 Anxiety disorder, unspecified F41.9 Obsessive-compulsive disorder, unspecifi ed F42.9 Asperger's syndrome F84.5 Surgical History Surgery Date(Month/Year) [place] Hospitalization History Reason Date(Month/Year) Mental Health Issues Several Times
--- OUTSIDE RECORDS SUMMARY | 2025-06-04 10:40 | XMS_ITS | Clinical Summary ---
Author Organization [facility] Address [address] [place] [address] Phone Care Team Providers Care Coat Joiner Name Role Phone Markus Macedo MD Primary Care Provider Allergies No known active allergies Encounters Date Type Department Care Team Description 03/04/2025 7:22 PM EDT - 03/04/2025 11:59 PM EDT Hospital Encounter [facility] MRI [address] [place] [address] Headache, unspecified Discharge Disposition: Home or Self Care from Last 3 Months Social History Tobacco Use Types Packs/Day Years Used Date Smoking Tobacco: Never Assessed Comments Unknown Sex and Gender Information Value Date Recorded Sex Assigned at Not on file Legal Sex Female 12:20 PM EST Gender Identity Not on file Sexual Orientation Not on file Plan of Treatment Health Maintenance Due Date Last Done Comments DTaP,Tdap,and Td Vaccines (1 - Tdap) 2013 Hepatitis B Vaccines (1 of 3 - 19+ 3-dose series) 2013 Cervical Cancer Screening: P ap Smear 12/11/2015 HPV Vaccines (1 - 3-dose SCD M series) 2021 HIV Screening 06/29/2022 Hepatitis C Screening 06/29/2022 Social Influencers of Health Screening 06/29/2022 Depression Screening 08/01/2024 COVID-19 Vaccine (2 - 2024-2 6 season) 2025 02/03/2021 Influenza Vaccine (#1) 2025 RSV Immunization Adult Patie nts (1 - 1-dose 75+ series) 2069 Meningococcal B Vaccine Aged Out 01/03/2018 No l onger eligible based on patient's age to complete this topic HIB Vaccines Aged Out No longer eligi ble based on patient's age to complete this topic Hepatitis A Vaccines Aged Out No long er eligible based on patient's age to complete this topic IPV Vaccines Aged Out No longer eligi ble based on patient's age to complete this topic MMR Vaccines Aged Out No longer eligi ble based on patient's age to complete this topic Meningococcal ACWY Vaccine Aged Out N o longer eligible based on patient's age to complete this topic Pneumococcal Vaccine: Pediat rics (0 to 5 Years) and At-Risk Patients (6 to 49 Years) Aged Out No longer eligi ble based on patient's age to complete this topic RSV Immunization Patients Un janett 20 months Aged Out No longer eligible b ased on patient's age to complete this topic Varicella Vaccines Aged Out No longer eligible based on patient's age to complete this topic Procedures Procedure Name Priority Date/Time Associated Diagnosis Comments MR BRAIN WO CONTRAST Routine 03/04/2025 8:11 PM EDT Headache, unspecified from Last 3 Months Results * MR Brain wo Contrast (03/04/2025 8:11 PM EDT) Anatomical Region Laterality Modality Head and Neck Magnetic Resonan ce 03/05/2025 1:20 PM EDT Impressions 03/05/2025 1:21 PM EDT Normal study. -------- FINAL REPORT -------- Dictated By: Shankar Summers Dictated Date: 03/05/2025 13:20 ET Assigned Physician: Shankar Summers Reviewed and Electronically Signed By: Shankar Summers Signed Date: 03/05/2025 13:21 ET Workstation ID: [id number] Transcribed By: Self Edit Transcribed Date: 03/05/2025 13:20 ET Narrative 03/05/2025 1:21 PM EDT HISTORY: HEADACHES, NAUSEA, VOMITING. TECHNIQUE: Routine MRI of the brain without contrast. COMPARISON: None available. FINDINGS: No acute territorial infarct, mass effect, or intracranial hemorrhage. No significant white matter disease No hydrocephalus. Visualized paranasal sinuses are clear. Mastoid air cells are clear. No calvarial fracture. Orbits unremarkable. Procedure Note Shankar Summers MD - 03/05/2025 HISTORY: HEADACHES, NAUSEA, VOMITING. TECHNIQUE: Routine MRI of the brain without contrast. COMPARISON: None available. FINDINGS: No acute territorial infarct, mass effect, or intracranial hemorrhage. No significant white matter disease No hydrocephalus. Visualized paranasal sinuses are clear. Mastoid air cells are clear. No calvarial fracture. Orbits unremarkable. IMPRESSION: Normal study. -------- FINAL REPORT -------- Dictated By: Shankar Summers Dictated Date: 03/05/2025 13:20 ET Assigned Physician: Shankar Summers Reviewed and Electronically Signed By: Shankar Summers Signed Date: 03/05/2025 13:21 ET Workstation ID: [id number] Transcribed By: Self Edit Transcribed Date: 03/05/2025 13:20 ET Julianna MCCRACKEN IMG MRI PROCEDURES Final Res ult from Last 3 Months Insurance T MEDICAID - [place] Care Teams Coat Joiner Relationship Specialty Start Date End Date Markus Macedo MD [address] [place] [address] PCP - General Internal Medicine 02/14/25
--- OUTSIDE RECORDS SUMMARY | 2025-06-04 10:41 | XMS_ITS | Patient Health Record ---
Author Organization [facility] Address [address] [place], [place] [id number] Care Team Providers Care Communication Analyst Name Role Phone RADHA MEDEL Primary Care Provider [phone] JERRY CAMPBELL Unavailable [phone] PIA RESENDIZ Unavailable [phone] ALLERGIES No Known Allergies REASON FOR REFERRAL Reason 10/10/[address] Limon [facility] send copy of note labs urine over to her. Multiple urinary complaints including decreased bladder emptying pressure and discomfort Diagnosis 1 Urinary hesitancy (R 39.11) Referral Organization [facility] sonal Referring Provider First Name RADHA Referring Provider Last Name GIANFRANCO Referring Provider [facility] Internal edicine Referred Organization [facility] Referred Address [address] [place] [address] Referred Provider Specialty Urology General Notes Denae BEYER Admin 07/2025 09:07:47 AM > Saba Limon >Faxed medical referral, note and recent labs to [facility] at [phone] requesting an URGENT visit please>no referral required with pt's insurance plan Referral Priority Urgent Reason 03/11/[address] app[address] Cons [address] Dr[address] Blake pulmonary for shortness of breath question asthma question methacholine challenge test send copy of my note all the labs x-rays PFTs to the him Diagnosis 1 Shortness of breath (R06.02) Referral Organization [facility] Ralph pruitt Referring Provider First Name RADHA Referring Provider Last Name GIANFRANCO Referring Provider Speciality Internal M edicine Referred Provider CHAY BLAKE Referred Provider Specialty Pulmonary Di to[place] Referral Priority Urgent MEDICATIONS Medication SIG (Take, Route, Fr equency, [...] never smoker Section Notes: pt never smoke pt never smoke pt never smoke pt never smoke pt never smoke pt never smoke pt never smoke pt never smoke pt never smoke PROBLEMS Problem Type ICD Code Onset Dates Problem Status W/U Status Risk SNOMED Code Notes Problem Cervicalgia (M54.2) Active confirmed 1313247954762 Problem Urinary hesitancy (R39.11) Active confirmed 7836515 Problem Disorder of lipoprotein metabolism, 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 confirmed Disorder of lipoprotein storage and metabolism (disorder) (628301467) Problem Major depressive disorder, single episode, unspecified (F32.9) Active confirmed Major depressio n, single episode (48201077) Problem Anxiety (F41.9) Active confirmed 148446 02 Problem Asperger syndrome (F84.5) Active confirmed 47940630 Problem Obsessive-compu lsive disorder, unspecified type (F42.9) Active confirmed 611863492 Problem Depression, unspecified depression type (F32.A) Active confirmed 12018854 VITAL SIGNS Blood pressure diastolic 67 mm Hg 05/22/2025 Height 63.75 in 05/22/2025 Blood pressure systolic 99 mm Hg 05/22/2025 Weight 150 lbs 05/22/2025 BMI 25.95 kg/m2 05/22/2025 Encounters Encounter Location Date Provider Diagnosis [facility] [address] [place] [address] 10/09/2024 RADHA MEDEL [facility] [address] [place] [address] 10/09/2024 RADHA MEDEL Disorder of lipoprotein metabolism, unspecified E78.9 ; Anxiety disorder, unspecified F41.9 ; Elevated alkaline phosphatase level R74.8 ; Unintended weight gain R63.5 and Urinary hesitancy R39.11 [facility] [address] [place] [address] 10/10/2024 RADHA MEDEL Elevated cortisol level R79.89 [facility] [address] [place] [address] 10/11/2024 RADHA MEDEL [facility] [address] [place] [address] 10/12/2024 RADHA MEDEL [facility] [address] [place], [place] [phone] 10/15/2024 RADHA MEDEL [place] [phone] 10/15/2024 RADHA MEDEL [place] [phone] 10/23/2024 RADHA MEDEL [place] [phone] 11/13/2024 RADHA MEDEL Disorder of lipoprotein metabolism, unspecified E78.9 ; Anxiety disorder, unspecified F41.9 ; Elevated alkaline phosphatase level R74.8 ; Encntr for general adult medical exam w/o abnormal findings Z00.00 and Unintended weight gain R63.5 [place] [phone] 11/13/2024 [address] MEDEL [address] [address] 12/03/2024 RADHA MEDEL [place] [phone] 12/03/2024 RADHA MEDEL [facility] [place] [phone] 12/04/2024 RADHA MEDEL [address] [address] 12/18/[address]24 [address] [address] 01/15/[address] [address] 01/16/2025 PIA RESENDIZ Cough, unspecified type R05.9 ; Recurrent URI (upper respiratory infection) J06.9 and Laryngitis J04.0 [facility] [address] [place] [address] 02/04/2025 RADHA MEDEL [facility] [address] [place] [address] 02/18/2025 RADHA MEDEL [facility] [address] [place] [phone] 02/22/2025 RADHA MEDEL [facility] [address] [place] [address] 02/26/2025 RADHA MEDEL [facility] [address] [place], [place] [phone] 02/28/2025 [facility] Frequent headaches R51.9 ; Cervicalgia M54.2 ; Unintended weight gain R63.5 ; Anxiety F41.9 and Obsessive-compulsive disorder, unspecified type F42.9 [facility] [address] [place] [phone] 03/06/2025 [facility] [address] [address] 03/11/2025 RADHA MEDEL Disorder of lipoprotein metabolism, unspecified E78.9 ; Anxiety disorder, unspecified F41.9 ; Elevated alkaline phosphatase level R74.8 ; Major depressive disorder, single episode, unspecified F32.9 ; Frequent headaches R51.9 ; Shortness of breath R06.02 and Weight loss R63.4 [facility] [address] [place] [address] 03/11/2025 RADHA MEDEL [address] [address] 04/09/2025 RADHA MEDEL [facility] [address] [place] [phone] 04/25/2025 RADHA MEDEL [address] [address] 05/01/2025 RADHA MEDEL Disorder of lipoprotein metabolism, unspecified E78.9 ; Anxiety disorder, unspecified F41.9 ; Elevated alkaline phosphatase level R74.8 ; Major depressive disorder, single episode, unspecified F32.9 ; Unintended weight gain R63.5 and Frequent headaches R51.9 [facility] [address] [place] [address] 05/21/2025 RADHA MEDEL [address] [place] [address] 05/21/2025 RADHA MEDEL [facility] [address] [place] [address] 05/22/2025 RADHA MEDEL Pain of upper extremity, unspecified laterality M79.603 ; Disorder of lipoprotein metabolism, unspecified E78.9 ; Anxiety disorder, unspecified F41.9 ; Elevated alkaline phosphatase level R74.8 and Major depressive disorder, single episode, unspecified F32.[address] [address] 05/23/2025 RADHA MEDEL Elevated total protein R77.[address] [address] 05/24/2025 RADHA MEDEL ASSESSMENTS Encounter Date Diagnosis Assessment Notes Treatment Notes Treatment Clinical Notes Section Notes 05/23/2025 Elevated total protein (ICD-10 - R77.8) 05/22/2025 Pain of upper extremity, unspecified laterality [...] and weight loss. Recheck in 6 months 02/28/2025 Frequent headaches (ICD-10 - R51.9) Presentation consistent with migraine headaches, neuro exam benign. Will evaluate further with MRI and follow up with results. Patient advised to try Excedrin Migraine at first sign of headache, advise adequate fluid intake, can consider daily magnesium. Patient declined labs today but agreed to do this if MRI unrevealing. , Pt knows to follow up immediately if symptoms worsen 02/28/2025 Cervicalgia (ICD-10 - M54.2) Chronic, cervical spine x-ray done 11/2024 benign, suspect muscular, advised physical therapy, which patient declines at this time. 03/11/2025 Anxiety disorder, unspecified (ICD-10 - F41.9) 03/11/2025 Disorder of lipoprotein metabolism, unspecified (ICD-10 - E78.9) Lipids at goal total less than 200 LDL less than 100 follow-up in 12 months 01/16/2025 Cough, unspecified type (ICD-10 - R05.9) Benzonatate 1 capsule 3 times a day as needed for cough. Plenty of liquids. Humidifier at nighttime. Throat lozenges as needed. Salt water gargles. Chest x-ray ordered. PFTs ordered. Follow-up with Dr. Medel in 1 month. 01/16/2025 Recurrent URI (upper respiratory infection) (ICD-10 - J06.9) Benzonatate as prescribed. Saline nasal sprays, salt water gargles and throat lozenges. Can use Kelli (fexofenadine) or Claritin (loratadine) daily. Follow-up with Dr. Medel in 1 month can consider referral to pulmonology if needed. 05/01/2025 Anxiety disorder, unspecified (ICD-10 - F41.9) Stable doing well on present dose of SSRI continue 05/01/2025 Disorder of lipoprotein metabolism, unspecified (ICD-10 - E78.9) Total cholesterol 160 LDL under 100 therefore recheck in 1 year. 10/10/2024 Elevated cortisol level (ICD-10 - R79.89) 10/09/2024 Anxiety disorder, unspecified (ICD-10 - F41.9) 10/09/2024 Disorder of lipoprotein metabolism, unspecified (ICD-10 - E78.9) Check lipid profile total cholesterol goal less than 200 LDL less than 100. 11/13/2024 Anxiety disorder, unspecified (ICD-10 - F41.9) Stable. Doing well elects to continue present regimen at the present doses. 11/13/2024 Disorder of lipoprotein metabolism, unspecified (ICD-10 - E78.9) Continue with diet exercise weight loss. Recheck profile LDL goal less than 100 optimally 11/13/2024 Elevated alkaline phosphatase level (ICD-10 - R74.8) Recheck alk phos. Check isoenzymes. Antimitochondrial antibody negative. Electrophoresis negative. 10/09/2024 Elevated alkaline phosphatase level (ICD-10 - R74.8) Recheck alk phos. 05/01/2025 Elevated alkaline phosphatase level (ICD-10 - R74.8) Recheck alkaline phosphatase check serum immunofixation 01/16/2025 Laryngitis (ICD-10 - J04.0) Salt water gargles, throat lozenges. Voice rest at times. Plenty of windows. Humidifier at nighttime. Follow-up with Dr. Medel. Can consider laryngeal reflux if continuing issues. Can consider referral to ENT if needed. 03/11/2025 Elevated alkaline phosphatase level (ICD-10 - R74.8) Stable. Symptoms recheck alk phos. Recheck serum protein electrophoresis etc. check smooth muscle antibody 02/28/2025 Unintended weight gain (ICD-10 - R63.5) 05/22/2025 Anxiety disorder, unspecified (ICD-10 - F41.9) Stable continue as needed clonazepam and fluoxetine 11/13/2024 Encntr for general adult medical exam w/o abnormal findings (ICD-10 - Z00.00) 10/09/2024 Unintended weight gain (ICD-10 - R63.5) Check full labs including TSH blood sugar A1c. Stressed the patient that she really needs to start getting more active. She is very sedentary she needs also go on a low-carb higher protein fat-free diet. Recommended strong Mediterranean diet. Also discussed possibly going on a GLP-1 agonist she is doing check with the insurance company to see which one they would cover. Mother is also setting her up with her psychiatrist for counseling. 05/01/2025 Major depressive disorder, single episode, unspecified (ICD-10 - F32.9) 03/11/2025 Major depressive disorder, single episode, unspecified (ICD-10 - F32.9) Stable doing well continue SSRI 02/28/2025 Anxiety (ICD-10 - F41.9) 05/22/2025 Elevated alkaline phosphatase level (ICD-10 - R74.8) Recheck alk phos. Check antimitochondrial antibody follow-up IgM level serum protein electrophoresis negative for an M spike. Polyclonal increase in immunofixation will monitor 11/13/2024 Unintended weight gain (ICD-10 - R63.5) Patient doing very well first month of Mounjaro. Recommended decreasing to 5 mg a day recheck in 4 months patient to call for any issues related side effects 10/09/2024 Urinary hesitancy (ICD-10 - R39.11) With the variety of symptoms and unclear diagnosis I strongly recommend patient get into see Dr. Phoenix HEARN. Also will put a referral into Dr. Limon [facility]. Needs full evaluation at this time 05/01/2025 Unintended weight gain (ICD-10 - R63.5) Patient doing very well with no side effects from the medication and has lost a considerable amount of weight body mass index has now dropped down to 27 with a 50 pound weight loss. Told patient I would probably decrease the dosage when she gets down to around 140 03/11/2025 Frequent headaches (ICD-10 - R51.9) Neurologically intact MRI of the brain negative check labs 02/28/2025 Obsessive-compu lsive disorder, unspecified type (ICD-10 - F42.9) 05/22/2025 Major depressive disorder, single episode, unspecified (ICD-10 - F32.9) Stable doing well 05/01/2025 Frequent headaches (ICD-10 - R51.9) Stable doing well 03/11/2025 Shortness of breath (ICD-10 - R06.02) [...] better. No side effects noted 03/11/2025 Other 05/22/2025 Other Patient tolerat ing the GLP-1 agonist therapy well. He is also sleeping moderately. No side effects 02/28/2025 Other I am seeing the patient under the supervision of the co-signing physician. The physician was available for consultation at the time of the office visit. PLAN OF TREATMENT Pending Test Test Name Order Date XR Chest 2 views 01/16/2025 PFT (Pulmonary Function Test) 01/16/2025 Future Test Test Name Order Date Hepatic Function Panel [id number] 2024 Alkaline Phosphatase-[id number] 11/03/2024 Lyme Disease Serology w/Reflex-[id number] Immunofixation, Serum-[id number] 05/23/2025 Protein Elec + Interp, Serum-[id number] 05/02 Next Appt Details Provider Name:RADHA HERNANDEZ ALAN, 11/19/2025 10:30:00 AM, [address] [place], [address], Insurance Providers Payer Name Payer Address Payer Phone Subscriber Number Group Number Insured Name Patient Relationship to Insured Coverage Start Date Coverage End Date [facility] [address] [place] [address] [id number] JEAN MATHUR Self - patient is the insured [employer] [address] [place] [address] [id number] JEAN MATHUR Self - patient is the insured MEDICAL (GENERAL) HISTORY Medical History History ICD Code anxiety depression 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 Garibay Liver ultrasound November 2023 normal Colonoscopy November 2023 Dr. Norris 1 polyp sessile serrated polyp recheck 2026 [facility] urology frequent urinatio n evaluation 2024 Brain MRI January 2025 normal Surgical History Surgery Date(Month/Year) wisdom teeth pulled x4
--- OUTSIDE RECORDS SUMMARY | 2025-06-04 10:42 | XMS_ITS | Data Portability ---
Author Organization [place] - [facility],, STACY MÁRQUEZ MD Address [address] [facility] [address] [place] [address] Care Team Providers Care Paper Sealer Name Role Phone RADHA MEDEL Primary Care Provider Assessment No assessment recorded. Plan of Treatment Reminders Order Date Submit Date Provider Last Modified By Organization Details Last Modified Time Details Appointments None recorded. Lab pap test, thinprep, cervical 2020 021 [facility], Cytopathology Service, [address] [place] [address], [address], 1 08:32:43 chlamydia sp, culture, unspecifi ed specimen 2020 021 [facility], Cytopathology Service, [address] [place] [address], [address], 1 08:32:44 NG DNA, PCR, genital 2020 021 [facility], Cytopathology Service, [address] [place] [address], [address], 1 08:32:44 pap test, thinprep, cervical 2019 020 [email or web address], Cytopathology Service, [address] [place] [address], [address], 0 07:30:54 chlamydia sp, culture, unspecifi ed specimen 2019 020 [email or web address], Cytopathology Service, [address] [place] [address], [address], 0 07:30:54 NG DNA, PCR, genital 2019 020 [email or web address], Cytopathology Service, [address] [place] [address], [address], 0 07:30:54 pap test, thinprep, cervical 2018 019 [facility], Cytopathology Service, [address] [place], [address], 9 09:39:36 culture, urine 2018 019 [facility], [address] [place], [address], 9 08:02:30 chlamydia sp, culture, unspecifi ed specimen 2018 019 [facility], Cytopathology Service, [address] [place] [address], [address], 9 09:39:37 NG DNA, PCR, genital 2018 019 [facility], Cytopathology Service, [address] [place] [address], [address], 9 09:39:37 pap test, thinprep, cervical 2017 018 [facility], Cytopathology Service, [address] [place], [address], 8 14:14:39 chlamydia sp, culture, unspecifi ed specimen 2017 018 [facility], Cytopathology Service, [address] [place] [address], [address], 8 07:20:02 NG DNA, PCR, genital 2017 018 [facility], Cytopathology Service, [address] [facility], [place], [address], 8 07:20:02 Referral None recorded. Procedures None recorded. Surgeries None recorded. Imaging None recorded. Medication Orders fluconazo le 150 mg tablet 2018 019 [id number], [address] [place], [address], 0 14:05:59 Patient TargetsNo targets recorded. Patient Instructions Encounter Date Encounter Id Patient Instructions Last Modified By Organization Details Last Modified Time 04/14/2018 [id number] breast self-exam : care instructions Not available 04/14/2018 15:20:35 She is here as a new patient for annual exam. She has anxiety, and OCD, and is on the autism spectrum. 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 She is taking Klonopin and prozac at this time. She has never been sexually active. She appears to be doing well. She declines control at this time, options discussed in detail. She is advised to get 1500 mg of calcium daily into her diet and supplements combined. We discussed the benefits of adequate vitamin D supplementation to at least 400 units daily, daily aerobic exercise of 30 minutes, and stress reduction. Monthly self breast exam was taught, and stressed, and is advised to call if she discovers any new mass in the breast. Seat belt use for herself and passengers advised. The significant health benefits of becoming and remainig fit, with an optimal BMI, were also discussed. We discussed the potential reduction in chronic discomfort, the diminished risks of hypertension, diabetes, and heart disease with the proper weight management, and improved mobility as she ages. Strategies to reach and maintain her target weight wer discussed in detail, all questions answered. Not available 04/14/2018 15:19:57 03/27/2019 [id number] frequent urinati on: care instructions Not available 03/27/2019 08:37:39 vaginal yeast infection: care instructions Not available 03/27/2019 08:37:40 She is here for annual exam, is doing well. She has never been sexually active. Going into yasmin year at college, majoring in Appointed[employer]. She notes increased frequency of urination over the past week or two, she wonders if she aguilar a UTI. Note from 2018: She is here as a new patient for annual exam. She has anxiety, and OCD, and is on the autism spectrum. 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 She is taking Klonopin and prozac at this time. She has never been sexually active. She appears to be doing well. She declines control at this time, options discussed in detail. She appears to be doing well. Will check urine dip for complaint of increased frequency of urination, but does have monilia vaginitis, may be due to this, rx diflucan if she develops pruritus or symptoms worsen she will take. She could not give a specimen so urine culture ordered at lab, instead. She is advised to get 1500 mg of calcium daily into her diet and supplements combined. There is a health benefit with adequate vitamin D supplementation to at least 400 units daily, daily aerobic exercise of 30 minutes, and stress reduction. Monthly self breast exam was taught, and stressed, and is advised to call if she discovers any new mass in the breast. Seat belt use for herself and passengers are advised. There are significant health benefits of becoming and remainig fit, with an optimal BMI. There is a potential reduction in chronic discomfort, diminished risks of hypertension, diabetes, and heart disease with the proper weight management. With a recommended BMI there can be improved mobility as she ages. Strategies to reach and maintain her target weight were discussed in detail. Not available 03/27/2019 10:02:58 03/10/2020 [id number] She is here for annual exam, is doing well. She has never been sexually active. Going into senior year at college, majoring in Appointed[employer]. She is on the autism spectrum. She appears to be doing well. She is advised to get 1500 mg of calcium daily into her diet and supplements combined. There is a health benefit with adequate vitamin D supplementation to at least 400 units daily, daily aerobic exercise of 30 minutes, and stress reduction. Monthly self breast exam was taught, and stressed, and is advised to call if she discovers any new mass in the breast. Seat belt use for herself and passengers are advised. There are significant health benefits of becoming and remainig fit, with an optimal BMI. There is a potential reduction in chronic discomfort, diminished risks of hypertension, diabetes, and heart disease with the proper weight management. With a recommended BMI there can be improved mobility as she ages. Strategies to reach and maintain her target weight were discussed in detail. 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 She majored in babbel. She is on the autism spectrum. Never sexually active. Note from 2020: She is here for annual exam, is doing well. She has never been sexually active. Going into senior year at college, majoring in communications. She is on the autism spectrum. She appears to be doing well. She is advised to get 1500 mg of calcium daily into her diet and supplements combined. There is a health benefit with adequate vitamin D supplementation to at least 400 units daily, daily aerobic exercise of 30 minutes, and stress reduction. Monthly self breast exam was taught, and stressed, and is advised to call if she discovers any new mass in the breast. We discussed various forms of control, she is given literature on several types, and also overview control literature, to take home. She will look at this at her leisure, so that she can be prepared if she does need contorl in the future. Not available 03/30/2021 15:23:15 Reason for Referral None Reported. Results Created Date Observation Date Name Description Value Unit Range Abnormal Flag Note LastModifiedBy Organization Detail LastModifiedTime 04/14/20 18 04/14/2018 gener al5ca se [id number] RESUL TS OF GEN-P ROBE APTIM A COMBO 2 ASSAY Chlam ydia: NEGAT JOSE J N. jose june e: NEGAT JOSE J NIKKI JIMENEZ M.D., Patho logis t (Case elect esther garcia nereida d 04 18 2018) CLINI JIN INFOR MATIO N: Z12.4 , Z11.3 SOURC E: ThinP rep Pap for CT/GC Gross Descr iptio n: ThinP rep Vial Recei sera. Physi cians SUPRIYA ANSARI PRATIK N /#[phone]/2 [phone] Not Available [facility], Cytopathology Service [address] [place], [address], 04/18/2018 11:44:26 04/14/20 18 04/14/2018 pap, LB [id number] ThinP rep Pap, Image d: NEGAT JOSE J FOR SQUAM OUS INTRA EPITH ELIAL LESCATRACHITO N AND MALIG TONYA . Barboza Eidarryn Michelle , CT( CP) (Case elect esther garcia nereida d 04 18 2018) ADEQU ACY: Satis facto ry. Endoc ervic al/tr ansfo rmati on zone compo nent absen t. SOURC E: ThinP rep Pap HPV IF ASCUS , Cervi jin, Image d: CLINI JIN INFOR MATIO N: HPV If Diagn osis of ASCUS . Z12.4 , Z11.3 Not Available [facility], Cytopathology Service [address] [place], [address], 04/18/2018 14:14:39 03/27/20 19 03/27/2019 cultu re, urine comments [facility], a mem[facility] r of [facility] [address] [facility] [place] [address] Medic al Direc shauna brady MD [facility] E: URINE ,PATRICIA N CATCH ; Not Available [facility] [address] [place], [address], 03/28/2019 08:02:29 03/27/20 19 03/28/2019 cultu re, urine urine culture [facility], a mem[facility] r of [facility] [address] [facility] [place] [address] Medic al Direc MD NOLAN RiceION TIME: 2018 10:44 :00 AM -04:0 0 URINE CULTU RE No growt h F Not Available [facility] [address] [place], [address], 03/28/2019 08:02:29 03/27/20 19 03/27/2019 gener al5ca se [id number] RESUL TS OF APTIM A COMBO 2 ASSAY : Felipe nunezdia: NEGAT JOSE J N. jose june e: NEGAT JOSE J Compl eted on 03-29 NIKKI JIMENEZ M.D. , Patho logis t (Case elect esther garcia nereida d 03 29 2019) CLINI JIN INFOR MATIO N: Z12.4 , Z01.4 19 SOURC E: ThinP rep Pap for CT/GC Gross Descr iptio n: ThinP rep Vial Recei sera. Physi cians PRATIK N MACMI LLAN/ [phone] 79 Not Available [facility], [facility] Service [address] [place], [address], 03/29/2019 08:06:04 03/27/20 19 03/27/2019 pap, LB [id number] ThinP rep Pap, Image d: NEGAT JOSE J FOR SQUAM OUS INTRA EPITH ELIAL LESIO N AND MALIG TONYA . Clue cells are prese nt. Cynth ia A. Strut hers , CT( CP) (Case elect esther garcia nereida d 03 29 2019) ADEQU ACY: Satis facto ry Endoc ervic al/tr ansfo rmati on zone compo nent absen t. SOURC E: ThinP rep Pap HPV IF ASCUS , Cervi jin, Image d CLINI JIN INFOR MATIO N: HPV If Diagn osis of ASCUS . Z12.4 , LPS = NEG Not Available [facility], [facility] Service [address] [place], [address], 03/29/2019 15:25:31 03/10/20 20 03/10/2020 gener al5ca se [id number] RESUL TS OF APTIM A COMBO 2 ASSAY : Chlam ydia: NEGAT JOSE J N. gonor rhoea e: NEGAT JOSE J Compl eted on 03-11 NIKKI JIMENEZ M.D. , Patho logis t (Case elect esther garcia nereida d 03 11 2020) CLINI JIN INFOR MATIO N: Z12.4 , z01.4 19, z01.4 19 SOURC E: ThinP rep Pap for CT/GC Gross Descr iptio n: ThinP rep Vial Recei sera. Physi cians PRATIK N SUPRIYA LLFRANNIE/ [phone]/2 79 Not Available [facility], Cytopathology Service [address] [place], [address], 03/11/2020 16:26:15 03/10/20 20 03/10/2020 pap, LB [id number] ThinP rep Pap, Image d: NEGAT JOSE J FOR SQUAM OUS INTRA EPITH ELIAL LESCATRACHITO N AND MANJEET CASTANEDA . Ellen Ye a , CT( CP) (Case elect esther garcia nereida d 03 12 2020) ADEQU ACY: Satis facto ry Endoc ervic al/tr ansfo rmati on zone compo nent absen t. SOURC E: ThinP rep Pap HPV IF ASCUS , Cervi jin, Image d CLINI JIN INFOR MATIO N: HPV If Diagn osis of ASCUS . z12.4 , z01.4 19, z11.3 Not Available [facility], Cytopathology Service [address] [place], [address], 03/13/2020 11:05:52 03/30/20 21 03/30/2021 GENER AL5CA SE [id number] Chlam ydia: NEGAT JOSE J N. gonor rhoea e: NEGAT JOSE J Compl eted on 04-01 CLINI JIN INFOR MATIO N: LPS neg, z11.3 , z12.4 , z01.4 19 SOURC E: ThinP rep Pap for CT/GC Gross Descr iptio n: ThinP rep Vial Recei sera. Physi alley ANSARI/ [phone]/2 79 Not Available [facility], Cytopathology Service [address] [place], [address], 04/01/2021 11:05:54 03/30/20 21 03/30/2021 PAP1C ASE [id number] ThinP rep Pap, Image d: NEGAT JOSE J FOR SQUAM OUS INTRA EPITH ELIAL SOUMYA Brady AND MANJEET CASTANEDA . Ellen Ye a , CT( CP) (Case elect esther garcia nereida d 04 06 2021) ADEQU ACY: Satis facto ry Endoc ervic al/tr ansfo rmati on zone compo nent absen t. SOURC E: ThinP rep Pap HPV IF ASCUS , Cervi jin, Image d CLINI JIN INFOR MATIO N: HPV If Diagn osis of ASCUS . LPS NEG, Z12.4 , Z11.3 , Z01.4 19 Not Available [facility], Cytopathology Service [address] [place], [address], 04/07/2021 07:41:01 Result Notes None recorded. Medical Equipment None Reported. Allergies No known drug allergies Medications Name Sig Start Date Stop Date Status Note LastModified by Organization Details LastModified Time Prozac 40 mg capsule Take 1 capsule every day by oral route. 03/10 completed 60 mg Not Available Not Available Not Available fluconazole 150 mg tablet Take 1 tablet every day by oral route at bedtime for 1 day. 03/10 completed Not Available Not Available Not Available clonazepam 1 mg tablet 03/10 completed Not Available Not Available Not Available epinephrine 0.3 mg/0.3 mL injection, auto-inject or INJECT DIRECTED NEEDED 03/30 completed Not Available Not Available Not Available fluoxetine 20 mg capsule TAKE THREE CAPSULES BY MOUTH EVERY DAY active Not Available Not Available No t Available Klonopin active as brittani rodriguez Not Available Not Available Not Available Vitals Date Recorded Body height Body mass index (BMI) Body weight Heart rate Body temperature Systolic And Diastolic Provider Name and Address Organization Details Last Updated DateTime 0 161.93 cm 28.2 kg/m2 86189.5 6 g 87 /min 97.7 [degF] 111/62 mm[Hg] Denia Wright in [facility], 0 14:05:18 Date Recorded Body height Body mass index (BMI) Body weight Heart rate Systolic And Diastolic Provider Name and Address Organization Details Last Updated DateTime 03/27/2019 163.83 cm 25.9 kg/m2 37788.35 g 87 /min 109/64 mm[Hg] Denia Wright in [facility], 03/27/2019 08:07:38 Date Recorded Body weight Body mass index (BMI) Body height Body temperature Heart rate Systolic And Diastolic Provider Name and Address Organization Details Last Updated DateTime 1 05209.8 3 g 29 kg/m2 162.56 cm 97.4 [degF] 86 /min 101/65 mm[Hg] Denia Wright in [facility], 1 14:55:01 Date Recorded Body weight Body mass index (BMI) Body height Heart rate Systolic And Diastolic Provider Name and Address Organization Details Last Updated DateTime 04/14/2018 95096.76 g 25.7 kg/m2 163.83 cm 81 /min 96/60 mm[Hg] Denia Wright in [facility], 04/14/2018 14:38:32 Social History Question Answer Notes LastModified by Organizat ion Details LastModified Time Tobacco Smoking Status Never Smoker LANETTE Arroyo in [facility], 04/14/2018 14:43:32 Do You Have An Advance Directive? No Information not available 04/14/2018 How Many Years Have You Consumed Alcohol? 5 Information not available 03/30/2021 What Is Your Level Of Caffeine Consumption? Occasional Tea Only Information not available 04/14/2018 How Much Tobacco Do You Chew? None Information not available 04/14/2018 In The 14 Days Before Symptom Onset, Have You Had Close Contact With A Laboratory-confir med COVID-19 While That Case Was Ill? No Information not available 03/10/2020 In The 14 Days Before Symptom Onset, Have You Had Close Contact With A Person Who Is Under Investigation For COVID-19 While That Person Was Ill? No Information not available 03/10/2020 Have You Been To An Area Known To Be High Risk For COVID-19? No Information not available 03/10/2020 What Type Of Diet Are You Following? REGULAR Information not available 04/14/2018 Which Illicit Or Recreational Drugs Have You Used? No Information not available 04/14/2018 Do You Reside In Or Have You Traveled To An Area Where Ebola Virus Transmission Is Active? No Information not available 04/14/2018 Education 4 Year College Informatio n not available 03/30/2021 What Is The Highest Grade Or Level Of School You Have Completed Or The Highest Degree You Have Received? [id number] Information not available 03/30/2021 How Many Days In The Past Year Have You Had A Heavy Drinking Consumption (4+ Female, 5+ Male)? 0 Information no t available 03/30/2021 Are There Any Guns Present In Your Home? No Information not available 04/14/2018 High Number Of Sexual Partners No None Information not available 03/30/2021 To Which Gender Do You Self-identify? Female Information not available 04/14/2018 Marital Status Single Informatio n not available 04/14/2018 What Was The Date Of Your Most Recent Tobacco Screening? 03/30/2021 Information not available 03/30/2021 What Is Your Relationship Status? Single Information not available 03/30/2021 Seat Belts Used Routinely Yes Information not available 04/14/2018 Are You Sexually Active? No Never Information not available 03/10/2020 Smoke Alarm In Home Yes Information not available 04/14/2018 How Much Tobacco Do You Smoke? No Information not available 03/27/2019 General Stress Level Medium Information not available 03/27/2019 Do You Use Sunscreen Routinely? Yes Information not available 04/14/2018 Have You Recently (within The Last 12 Weeks, Or During A Current ) Traveled To Or Lived In A Zika-affected Area? No Information not available 04/14/2018 How Many Days In The Past Year Have You Consumed 4 Or More Drinks? 0 Information no t available 03/30/2021 Sex: Female Functional Status Question Answer Note LastModified by Organizat ion Details LastModified Time Do you use any illicit or recreational drugs? No Information not available 03/30/2021 Do you or have you ever used any other forms of tobacco or nicotine? No Information not available 03/30/2021 What is your level of alcohol consumption? Occasional Information not available 04/14/2018 Do you or have you ever used smokeless tobacco? Never used smokeless tobacco Information not available 03/27/2019 Are you currently employed? 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 Never used electronic cigarettes Information not available 03/27/2019 What is your exercise level? Occasional Information not available 04/14/2018 Mental Status Question Answer Note LastModified by Organization D etails LastModified Time Do you feel stressed (tense, restless, nervous, or anxious, or unable to sleep at night)? [id number] Information not available 03/30/2021 Family History Relationship Description Onset Age of this Age Resolved Age Notes LastModified by Organization Details LastModified Time Paternal Aunt Malignant neoplasm of breast [email or web address] Not available 2017 14:42:43 Mother Problem thyroi d. tmeczywor Not available 04/14/2018 14:43:10 Medical History Condition Response Anesthesia complications N High Blood Pressure N Candidate for MyRisk panel N Autoimmune Condition N Lung Disease N Depression Y Defects or Inherited Disease N History of Ovarian Cancer N BRCA testing in past N Anxiety Disorder Y Arthritis N Infertility N History of Cancer N Endometriosis N Thyroid Problems N Kidney or Bladder Problems N GI Problems N Anemia N History of Breast Cancer N MARTHA exposure N Osteopenia N Psychiatric Illness N Diabetes N Headaches or Migraines N Asthma N Hepatitis N Heart Disease N Hypertension N Osteoporosis N Gynecological History Statement/Question Response Flow Moderate Date of LMP 03/10/2021 Frequency of Cycle (Q days) 30 Menses Monthly Y Duration of Flow (days) 7 Age at Menarche 12 Current Control Method Abstinence Age at First Child 1 Obstetrics History GPAL:G 0 P 0 0 0 0 Immunizations Vaccine Type Date Status Note Provider Nam e and Address Organization Details Recorded Time meningococcal B, unspecified 8 completed LANETTE Arroyo in [facility], 04/14/2018 14:41:48 COVID-19, mRNA, LNP-S, PF, 30 mcg/0.3 mL dose 1 completed LANETTE Arroyo in [facility], 03/30/2021 14:54:52 Past Encounters Encounter ID Performer Location Encounter Start Date Encounter Closed Date Diagnosis/Indication Diagnosis SNOMED-CT Code Diagnosis ICD10 Code Diagnosis IMO Codes Diagnosis Note [id number] MD STACY Sloan MD [address] [facility] [place] [address] 04/14/2018 14:12:40 04/14/2018 16:00:50 Specialized medical examination 71386638 Z01.419 Venereal d isease screening 943104208 Z11.3 [id number] MD STACY Sloan MD [address] [facility] [place] [address] 03/27/2019 08:01:36 03/27/2019 11:54:44 Specialized medical examination 17225459 Z01.419 Venereal d isease screening 137728116 Z11.3 Candidal vulvovaginitis 67976529 B37.3 Increased frequency of urination 877867518 R35.0 [id number] MD STACY Sloan MD [address] [facility] [place] [address] 03/10/2020 13:14:54 03/10/2020 14:41:06 Specialized medical examination 22683348 Z01.419 Venereal d isease screening 394273056 Z11.3 [id number] MD STACY Sloan MD [address] [facility] [place] [address] 03/30/2021 14:52:25 03/30/2021 15:35:37 Specialized medical examination 32739691 Z01.419 Venereal d isease screening 199881274 Z11.3 Health Concerns Section Related Observation LastModified by Organization Detai ls LastModified Time None Recorded Concern Status LastModified by Organization Details LastModified Time None Recorded Advance Directives Directive N: Payers Insurance Date Sequence Insurance Name Policy Number Policy Samuel Covered Member ID Samuel Member ID Guarantor Name 03/30/2021 1 [facility] [id number] 1 Hiren Villegas [id number] Chalino Lion 03/30/2021 1 *SELF PAY* Leach Notes Date Note Type Note Provider Name and Address Organization Details Recorded Time 04/14/2018 text/html She is here as a new patient for annual exam. She has anxiety, and OCD, and is on the autism spectrum. She is a sophomore in college , studying elementary ed and theatre.She is taking Klonopin and prozac at this time. She has never been sexually active. Stacy Márquez MD [address] [facility],[address], [place], [address], [place] [facility], 04/14/2018 15:20:59 03/27/2019 text/html She is here for annual exam, is doing well. She has never been sexually active. Going into yasmin year at college, majoring in communications. Note from 2018: She is here as a new patient for annual exam. She has anxiety, and OCD, and is on the autism spectrum. 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 She is taking Klonopin and prozac at this time. She has never been sexually active. She appears to be doing well. She declines control at this time, options discussed in detail. Stacy Márquez MD [address], [place], [id number], [place] - [facility] in [facility], 03/27/2019 10:03:20 03/10/2020 text/html She is here for annual exam, is doing well. She has never been sexually active. Going into senior year at college, majoring in communications. She is on the autism spectrum. 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 She majored in Communications. She is on the autism spectrum. Never sexually active. Note from 2020: She is here for annual exam, is doing well. She has never been sexually active.Going into senior year at college, majoring in communications. She is on the autism spectrum. Stacy Márquez MD [address], [place], [id number], [place] - [facility], 03/30/2021 15:23:30 OBGyn Episode No OBEpisode recorded.
== END 2025-06-04 10:19 | disposition home or self-care (01) ==
PROVIDERS: PCP Internal Medicine; Referring Provider Internal Medicine; Visit Provider Nurse Practitioner Family
DX: J45.909 Unspecified asthma, uncomplicated (principal); Z91.09 Other allergy status, other than to drugs and biological substances
CPT/HCPCS: 99204